=== PATIENT | female | born 1990 | race Caucasian/White ===

== ENCOUNTER 2020-06-02 16:39 | Emergency (ER) | payer MEDICAID ==
[~2020-06-02] VITALS: Ht 154.9 cm; Wt 63.5 kg
[2020-06-02 16:47] VITALS: Ht 154.9 cm; Wt 63.5 kg
[2020-06-02 18:43] VITALS: BP 142/88
== END 2020-06-02 18:43 | disposition home or self-care (01) ==
LOC: ED 16:39
DX: R50.9 Fever, unspecified (principal); R11.0 Nausea; R51.9 Headache, unspecified; R10.30 Lower abdominal pain, unspecified; M54.9 Dorsalgia, unspecified; Z20.828 Contact with and (suspected) exposure to other viral communicable diseases
CPT/HCPCS: J0696; J7030; J7060; Q0092; U0003-CS